=== PATIENT | female | born 1935 | race Hispanic/Latino ===

== ENCOUNTER 2023-01-27 15:18 | Inpatient (IN) | payer MEDICARE ==
[2023-01-27] MEDS ORDERED: Dextrose 5% in Water 1,000 ML IV PRN (19:45)
[2023-01-27] MEDS ORDERED: Dextrose 50% Abboject 50 ML SYRINGE IVP PRN (19:45)
[2023-01-27] MEDS: Amiodarone 200 MG TAB PO SCH ×2 (23:00→23:04)
[2023-01-27] MEDS: busPIRone HCl 5 MG TAB PO SCH ×2 (23:00→23:05)
[2023-01-27] MEDS: Acetaminophen 500 MG TAB PO SCH ×2 (23:00→23:06)
[2023-01-27] MEDS: Atorvastatin Calcium 10 MG TAB PO SCH (23:05)
[2023-01-28] MEDS: Acetaminophen 500 MG TAB PO SCH ×3 (06:06→17:09)
[2023-01-28] MEDS ORDERED: Non-Formulary Item 1 EACH (Amlodipine Besylate/Benazepril [Amlodipine Besylate/Benazepril PO SCH (09:00)
[2023-01-28] MEDS: busPIRone HCl 5 MG TAB PO SCH (09:37)
[2023-01-28] MEDS: Amiodarone 200 MG TAB PO SCH (09:37)
[2023-01-28] MEDS: Citalopram 20 MG TAB PO SCH (09:37)
[2023-01-28] MEDS: Tamsulosin HCl 0.4 MG CAP PO SCH (09:37)
[2023-01-28] MEDS: Insulin Regular 300 UNITS/3 ML VIAL SC PRN ×2 (09:44→17:16)
[2023-01-28] MEDS: ALPRAZolam 0.5 MG TAB PO PRN (18:29)
[2023-01-28] MEDS: Atorvastatin Calcium 10 MG TAB PO SCH (21:00)
[2023-01-29 05:17] LABS: Anion Gap 13 mmol/L (10-20); BUN (Urea Nitrogen) 15 mg/dL (9.8-20.1); Calc. Creatinine Clearance 28 mL/min (70-130); Calcium 8.6 mg/dL (7.8-10.44); Carbon Dioxide 23 mmol/L (23-31); Chloride 109 mmol/L (98-107); Estimated GFR 56; Glucose 209 mg/dL (83-110); Potassium 4.7 mmol/L (3.5-5.1); Sodium 140 mmol/L (136-145)
[2023-01-29 05:26] LABS: #Basophils 0.1 thou/uL (0.0-0.2); #Eosinphils 0.2 thou/uL (0.0-0.7); #Lymphocytes 0.8 thou/uL (1.20-3.40); #Monocytes 0.6 thou/uL (0.11-0.59); #Neutrophils 11.9 thou/uL (1.40-6.50); %Basophils 0.5 % (0.0-1.0); %Eosinophils 1.7 % (0.0-10.0); %Lymphocytes 5.8 % (21.0-51.0); %Monocytes 4.6 % (0.0-10.0); %Neutrophils 87.4 % (42.0-75.0); Hemoglobin 10.4 g/dL (12.0-16.0); Mean Corpuscular HGB CONC 31.5 g/dL (32.0-36.0); Mean Corpuscular Hemoglobin 29.1 pg (27.0-31.0); Mean Corpuscular Volume 92.2 fl (78.0-98.0); Mean Platelet Volume 6.8 fL (7.4-10.4); Platelet Count 279 10x3/uL (130-400); RBC Distribution Width 14.8 % (11.5-14.5); Red Blood Cell (RBC) Count 3.56 mill/uL (4.20-5.40); White Blood Cell (WBC) Count 13.7 10x3/uL (4.8-10.8)
[2023-01-29] MEDS: Acetaminophen 500 MG TAB PO SCH ×5 (06:00→19:25)
[2023-01-29] MEDS: Amiodarone 200 MG TAB PO SCH ×2 (09:50→21:29)
[2023-01-29] MEDS: Citalopram 20 MG TAB PO SCH (09:51)
[2023-01-29] MEDS: Insulin Regular 300 UNITS/3 ML VIAL SC PRN ×2 (09:52→13:45)
[2023-01-29] MEDS: Tamsulosin HCl 0.4 MG CAP PO SCH (09:52)
[2023-01-29] MEDS: Atorvastatin Calcium 10 MG TAB PO SCH (21:30)
[2023-01-30] MEDS: Acetaminophen 500 MG TAB PO SCH ×5 (00:46→23:49)
[2023-01-30] MEDS: Tamsulosin HCl 0.4 MG CAP PO SCH (10:11)
[2023-01-30] MEDS: Lisinopril 10 MG TAB PO SCH (10:11)
[2023-01-30] MEDS: Amlodipine 5 MG TAB PO SCH (10:12)
[2023-01-30] MEDS: Insulin Regular 300 UNITS/3 ML VIAL SC PRN ×2 (10:13→11:57)
[2023-01-30] MEDS: Citalopram 20 MG TAB PO SCH (10:13)
[2023-01-30] MEDS: Amiodarone 200 MG TAB PO SCH ×2 (10:13→22:00)
[2023-01-30] MEDS: ALPRAZolam 0.5 MG TAB PO PRN (11:52)
[2023-01-30] MEDS: Atorvastatin Calcium 10 MG TAB PO SCH (22:00)
[2023-01-31] MEDS: Acetaminophen 500 MG TAB PO SCH ×3 (06:01→17:55)
[2023-01-31] MEDS: Citalopram 20 MG TAB PO SCH (09:51)
[2023-01-31] MEDS: Lisinopril 10 MG TAB PO SCH (09:51)
[2023-01-31] MEDS: Amlodipine 5 MG TAB PO SCH (09:52)
[2023-01-31] MEDS: Tamsulosin HCl 0.4 MG CAP PO SCH (09:53)
[2023-01-31] MEDS: Insulin Regular 300 UNITS/3 ML VIAL SC PRN ×2 (09:54→17:51)
[2023-01-31] MEDS: Amiodarone 200 MG TAB PO SCH ×2 (09:54→21:23)
[2023-01-31] MEDS: Atorvastatin Calcium 10 MG TAB PO SCH (21:23)
[2023-01-31] MEDS: traMADol HCl 50 MG TAB PO PRN (21:23)
[2023-02-01] MEDS: Acetaminophen 500 MG TAB PO SCH ×4 (00:31→18:00)
[2023-02-01] MEDS: Tamsulosin HCl 0.4 MG CAP PO SCH (09:52)
[2023-02-01] MEDS: Amiodarone 200 MG TAB PO SCH ×2 (09:54→20:43)
[2023-02-01] MEDS: Lisinopril 10 MG TAB PO SCH (09:54)
[2023-02-01] MEDS: Amlodipine 5 MG TAB PO SCH (09:55)
[2023-02-01] MEDS: Citalopram 20 MG TAB PO SCH (09:55)
[2023-02-01] MEDS: Insulin Regular 300 UNITS/3 ML VIAL SC PRN ×3 (10:25→20:43)
[2023-02-01] MEDS: ALPRAZolam 0.5 MG TAB PO PRN (20:38)
[2023-02-01] MEDS: Atorvastatin Calcium 10 MG TAB PO SCH (20:39)
[2023-02-01] MEDS: Mirtazapine 15 MG TAB PO SCH (20:41)
[2023-02-01] MEDS: traMADol HCl 50 MG TAB PO PRN (20:42)
[2023-02-02] MEDS: Acetaminophen 500 MG TAB PO SCH ×5 (00:23→12:01)
[2023-02-02] MEDS ORDERED: Polyethylene Glycol 3350 17 GM Packet PER TUBE SCH (09:00)
[2023-02-02] MEDS: Lisinopril 10 MG TAB PO SCH (10:34)
[2023-02-02] MEDS: Citalopram 20 MG TAB PO SCH (10:35)
[2023-02-02] MEDS: Amlodipine 5 MG TAB PO SCH (10:37)
[2023-02-02] MEDS: Polyethylene Glycol 3350 17 GM Packet PO SCH (10:37)
[2023-02-02] MEDS: Tamsulosin HCl 0.4 MG CAP PO SCH (10:38)
[2023-02-02] MEDS: Amiodarone 200 MG TAB PO SCH ×2 (10:38→20:53)
[2023-02-02] MEDS: Insulin Regular 300 UNITS/3 ML VIAL SC PRN (12:12)
[2023-02-02] MEDS: Mirtazapine 15 MG TAB PO SCH (20:53)
[2023-02-02] MEDS: Atorvastatin Calcium 10 MG TAB PO SCH (20:53)
[2023-02-03] MEDS: Acetaminophen 500 MG TAB PO SCH ×4 (00:12→17:15)
[2023-02-03] MEDS: Polyethylene Glycol 3350 17 GM Packet PO SCH (09:04)
[2023-02-03] MEDS: Tamsulosin HCl 0.4 MG CAP PO SCH (09:04)
[2023-02-03] MEDS: Lisinopril 10 MG TAB PO SCH (09:05)
[2023-02-03] MEDS: Citalopram 20 MG TAB PO SCH (09:05)
[2023-02-03] MEDS: Amiodarone 200 MG TAB PO SCH ×2 (09:06→22:24)
[2023-02-03] MEDS: Amlodipine 5 MG TAB PO SCH (09:06)
[2023-02-03] MEDS: Insulin Regular 300 UNITS/3 ML VIAL SC PRN (12:14)
[2023-02-03] MEDS: Atorvastatin Calcium 10 MG TAB PO SCH (22:23)
[2023-02-03] MEDS: Mirtazapine 15 MG TAB PO SCH (22:24)
[2023-02-04] MEDS: Acetaminophen 500 MG TAB PO SCH ×5 (00:15→23:12)
[2023-02-04] MEDS: Polyethylene Glycol 3350 17 GM Packet PO SCH (09:35)
[2023-02-04] MEDS: Amlodipine 5 MG TAB PO SCH (09:37)
[2023-02-04] MEDS: Citalopram 20 MG TAB PO SCH (09:38)
[2023-02-04] MEDS: Amiodarone 200 MG TAB PO SCH ×2 (09:38→22:14)
[2023-02-04] MEDS: Tamsulosin HCl 0.4 MG CAP PO SCH (09:38)
[2023-02-04] MEDS: Lisinopril 10 MG TAB PO SCH (09:39)
[2023-02-04] MEDS: Insulin Regular 300 UNITS/3 ML VIAL SC PRN (12:53)
[2023-02-04] MEDS: Mirtazapine 15 MG TAB PO SCH (22:14)
[2023-02-04] MEDS: Atorvastatin Calcium 10 MG TAB PO SCH (22:14)
[2023-02-05] LABS: Bilirubin Negative (Negative); Blood, Urine Small (Negative); Clarity Cloudy (Clear); Glucose, Urine (Dipstick) Negative (Negative); Ketone, Urine Negative (Negative); Leukocyte Moderate (Negative); Nitrite Positive (Negative); Protein, Urine (Dipstick) Negative (Neg-Trace); Specific Gravity, Urine 1.015 (1.005-1.030); Urobilinogen 0.2 mg/dL (Less than 2)
[2023-02-05 00:02] LABS: Bacteria/HPF 3+ HPF (None Seen); CAUTI Indications for Culture Dysuria,urgency,freq
[2023-02-05 00:03] LABS: Mucous/LPF Few LPF (<2+)
[2023-02-05 00:04] LABS: Urine Culture Reflex Yes Yes
[2023-02-05] MEDS: Acetaminophen 500 MG TAB PO SCH ×4 (05:59→23:31)
[2023-02-05 06:02] LABS: #Basophils 0.1 thou/uL (0.0-0.2); #Eosinphils 0.2 thou/uL (0.0-0.7); #Lymphocytes 1.2 thou/uL (1.20-3.40); #Monocytes 0.6 thou/uL (0.11-0.59); #Neutrophils 7.1 thou/uL (1.40-6.50); %Basophils 0.6 % (0.0-1.0); %Lymphocytes 12.7 % (21.0-51.0); %Monocytes 6.4 % (0.0-10.0); %Neutrophils 78.3 % (42.0-75.0); Hemoglobin 10.2 g/dL (12.0-16.0); Mean Corpuscular HGB CONC 31.4 g/dL (32.0-36.0); Mean Corpuscular Hemoglobin 28.9 pg (27.0-31.0); Mean Corpuscular Volume 92.3 fl (78.0-98.0); Platelet Count 395 10x3/uL (130-400); RBC Distribution Width 16.1 % (11.5-14.5); Red Blood Cell (RBC) Count 3.52 mill/uL (4.20-5.40)
[2023-02-05 06:14] LABS: ALT (SGPT) 11 U/L (8-55); AST (SGOT) 12 U/L (5-34); Alkaline Phosphatase 120 U/L (40-110); Anion Gap 14 mmol/L (10-20); BUN (Urea Nitrogen) 23 mg/dL (9.8-20.1); Bilirubin, Total 0.3 mg/dL (0.2-1.2); Calc. Creatinine Clearance 23 mL/min (70-130); Calcium 8.4 mg/dL (7.8-10.44); Carbon Dioxide 22 mmol/L (23-31); Chloride 111 mmol/L (98-107); Estimated GFR 44; Globulin 2.8 g/dL (2.4-3.5); Glucose 151 mg/dL (83-110); Potassium 4.7 mmol/L (3.5-5.1); Protein, Total 5.8 g/dL (5.8-8.1); Sodium 142 mmol/L (136-145)
[2023-02-05] MEDS: Citalopram 20 MG TAB PO SCH (09:31)
[2023-02-05] MEDS: Tamsulosin HCl 0.4 MG CAP PO SCH (09:31)
[2023-02-05] MEDS: Amiodarone 200 MG TAB PO SCH (09:32)
[2023-02-05] MEDS: Polyethylene Glycol 3350 17 GM Packet PO SCH (09:33)
[2023-02-05] MEDS: traMADol HCl 50 MG TAB PO PRN (09:36)
[2023-02-05] MEDS: Lisinopril 10 MG TAB PO SCH (10:42)
[2023-02-05] MEDS: Amlodipine 5 MG TAB PO SCH (10:43)
[2023-02-05] MEDS: Insulin Regular 300 UNITS/3 ML VIAL SC PRN (12:53)
[2023-02-05] MEDS: Senokot 8.6 MG TAB PO PRN (21:38)
[2023-02-05] MEDS: Mirtazapine 15 MG TAB PO SCH (21:38)
[2023-02-05] MEDS: Atorvastatin Calcium 10 MG TAB PO SCH (21:38)
[2023-02-06] MEDS: Acetaminophen 500 MG TAB PO SCH ×4 (05:50→23:22)
[2023-02-06] MEDS: Amlodipine 5 MG TAB PO SCH (09:44)
[2023-02-06] MEDS: Amiodarone 200 MG TAB PO SCH (09:45)
[2023-02-06] MEDS: Tamsulosin HCl 0.4 MG CAP PO SCH (09:45)
[2023-02-06] MEDS: Lisinopril 10 MG TAB PO SCH (09:45)
[2023-02-06] MEDS: Senokot 8.6 MG TAB PO PRN ×2 (09:45→21:44)
[2023-02-06] MEDS: Citalopram 20 MG TAB PO SCH (09:45)
[2023-02-06] MEDS: Polyethylene Glycol 3350 17 GM Packet PO SCH (09:45)
[2023-02-06] MEDS: Insulin Regular 300 UNITS/3 ML VIAL SC PRN (12:27)
[2023-02-06] MEDS ORDERED: Ciprofloxacin 500 MG TAB PO SCH (13:30)
[2023-02-06] MEDS ORDERED: GLYCERIN ADULT PR PRN (14:42)
[2023-02-06] MEDS: Atorvastatin Calcium 10 MG TAB PO SCH (21:44)
[2023-02-06] MEDS: Mirtazapine 15 MG TAB PO SCH (21:45)
[2023-02-06] MEDS: Ciprofloxacin 500 MG TAB PO SCH (21:45)
[2023-02-07] MEDS: Ciprofloxacin 500 MG TAB PO SCH (05:23)
[2023-02-07] MEDS: Acetaminophen 500 MG TAB PO SCH ×3 (05:23→18:42)
[2023-02-07] MEDS: Polyethylene Glycol 3350 17 GM Packet PO SCH (10:40)
[2023-02-07] MEDS: metFORMIN XR 500 MG TAB PO SCH (10:41)
[2023-02-07] MEDS: Amlodipine 5 MG TAB PO SCH (10:41)
[2023-02-07] MEDS: Tamsulosin HCl 0.4 MG CAP PO SCH (10:41)
[2023-02-07] MEDS: Amiodarone 200 MG TAB PO SCH (10:42)
[2023-02-07] MEDS: Lisinopril 10 MG TAB PO SCH (10:42)
[2023-02-07] MEDS: Citalopram 20 MG TAB PO SCH (10:44)
[2023-02-07] MEDS: Insulin Regular 300 UNITS/3 ML VIAL SC PRN (13:01)
[2023-02-07] MEDS: Atorvastatin Calcium 10 MG TAB PO SCH (21:47)
[2023-02-07] MEDS: Mirtazapine 15 MG TAB PO SCH (21:48)
[2023-02-08] MEDS: Acetaminophen 500 MG TAB PO SCH ×4 (05:29→18:16)
[2023-02-08] MEDS: Ciprofloxacin 500 MG TAB PO SCH (05:29)
[2023-02-08] MEDS: Citalopram 20 MG TAB PO SCH (08:47)
[2023-02-08] MEDS: Amlodipine 5 MG TAB PO SCH (08:47)
[2023-02-08] MEDS: Amiodarone 200 MG TAB PO SCH (08:48)
[2023-02-08] MEDS: Lisinopril 10 MG TAB PO SCH (08:48)
[2023-02-08] MEDS: metFORMIN XR 500 MG TAB PO SCH (08:48)
[2023-02-08] MEDS: Tamsulosin HCl 0.4 MG CAP PO SCH (08:48)
[2023-02-08] MEDS: Polyethylene Glycol 3350 17 GM Packet PO SCH (08:49)
[2023-02-08] MEDS ORDERED: ALPRAZolam 0.5 MG TAB PO PRN (12:05)
[2023-02-08] MEDS: Insulin Regular 300 UNITS/3 ML VIAL SC PRN (12:18)
[2023-02-08] MEDS: Mirtazapine 15 MG TAB PO SCH (22:15)
[2023-02-08] MEDS: Atorvastatin Calcium 10 MG TAB PO SCH (22:18)
[2023-02-09] MEDS: Acetaminophen 500 MG TAB PO SCH ×4 (00:36→17:00)
[2023-02-09] MEDS: Ciprofloxacin 500 MG TAB PO SCH (06:00)
[2023-02-09] MEDS: Polyethylene Glycol 3350 17 GM Packet PO SCH (10:52)
[2023-02-09] MEDS: Amlodipine 5 MG TAB PO SCH (10:53)
[2023-02-09] MEDS: Tamsulosin HCl 0.4 MG CAP PO SCH (10:53)
[2023-02-09] MEDS: Lisinopril 10 MG TAB PO SCH (10:54)
[2023-02-09] MEDS: Amiodarone 200 MG TAB PO SCH (10:54)
[2023-02-09] MEDS: metFORMIN XR 500 MG TAB PO SCH (10:54)
[2023-02-09] MEDS: Citalopram 20 MG TAB PO SCH (10:54)
[2023-02-09] MEDS: Atorvastatin Calcium 10 MG TAB PO SCH (21:04)
[2023-02-09] MEDS: Mirtazapine 15 MG TAB PO SCH (21:04)
[2023-02-10] MEDS: Acetaminophen 500 MG TAB PO SCH ×4 (00:09→18:49)
[2023-02-10] MEDS: Ciprofloxacin 500 MG TAB PO SCH (05:40)
[2023-02-10] MEDS: metFORMIN XR 500 MG TAB PO SCH (10:02)
[2023-02-10] MEDS: Amlodipine 5 MG TAB PO SCH (10:02)
[2023-02-10] MEDS: Amiodarone 200 MG TAB PO SCH (10:03)
[2023-02-10] MEDS: Tamsulosin HCl 0.4 MG CAP PO SCH (10:03)
[2023-02-10] MEDS: Senokot 8.6 MG TAB PO PRN (10:03)
[2023-02-10] MEDS: Lisinopril 10 MG TAB PO SCH (10:03)
[2023-02-10] MEDS: Polyethylene Glycol 3350 17 GM Packet PO SCH (10:04)
[2023-02-10] MEDS: Citalopram 20 MG TAB PO SCH (10:04)
[2023-02-10] MEDS: Atorvastatin Calcium 10 MG TAB PO SCH (20:30)
[2023-02-10] MEDS: Mirtazapine 15 MG TAB PO SCH (20:30)
[2023-02-11] MEDS: Acetaminophen 500 MG TAB PO SCH ×4 (00:45→18:07)
[2023-02-11] MEDS: Ciprofloxacin 500 MG TAB PO SCH (05:36)
[2023-02-11] MEDS: metFORMIN XR 500 MG TAB PO SCH (09:11)
[2023-02-11] MEDS: Amiodarone 200 MG TAB PO SCH (09:11)
[2023-02-11] MEDS: Amlodipine 5 MG TAB PO SCH (09:12)
[2023-02-11] MEDS: Polyethylene Glycol 3350 17 GM Packet PO SCH (09:12)
[2023-02-11] MEDS: Tamsulosin HCl 0.4 MG CAP PO SCH (09:12)
[2023-02-11] MEDS: Citalopram 20 MG TAB PO SCH (09:12)
[2023-02-11] MEDS: Lisinopril 10 MG TAB PO SCH (09:12)
[2023-02-11] MEDS: Mirtazapine 15 MG TAB PO SCH (20:26)
[2023-02-11] MEDS: Atorvastatin Calcium 10 MG TAB PO SCH (20:26)
[2023-02-12] MEDS: Acetaminophen 500 MG TAB PO SCH ×4 (00:36→18:00)
[2023-02-12] MEDS: Ciprofloxacin 500 MG TAB PO SCH (05:48)
[2023-02-12] MEDS ORDERED: traMADol HCl 50 MG TAB PO PRN (06:22)
[2023-02-12] MEDS: Citalopram 20 MG TAB PO SCH (09:19)
[2023-02-12] MEDS: Amiodarone 200 MG TAB PO SCH (09:19)
[2023-02-12] MEDS: metFORMIN XR 500 MG TAB PO SCH (09:19)
[2023-02-12] MEDS: Tamsulosin HCl 0.4 MG CAP PO SCH (09:19)
[2023-02-12] MEDS: Lisinopril 10 MG TAB PO SCH (09:19)
[2023-02-12] MEDS: Amlodipine 5 MG TAB PO SCH (09:20)
[2023-02-12] MEDS: Polyethylene Glycol 3350 17 GM Packet PO SCH (09:20)
[2023-02-12] MEDS: Atorvastatin Calcium 10 MG TAB PO SCH (21:32)
[2023-02-12] MEDS: Mirtazapine 15 MG TAB PO SCH (21:32)
[2023-02-13] MEDS: Acetaminophen 500 MG TAB PO SCH ×4 (01:00→17:32)
[2023-02-13] MEDS: Ciprofloxacin 500 MG TAB PO SCH (05:56)
[2023-02-13] MEDS: Amlodipine 5 MG TAB PO SCH (08:33)
[2023-02-13] MEDS: Amiodarone 200 MG TAB PO SCH (08:34)
[2023-02-13] MEDS: Citalopram 20 MG TAB PO SCH (08:34)
[2023-02-13] MEDS: metFORMIN XR 500 MG TAB PO SCH (08:34)
[2023-02-13] MEDS: Tamsulosin HCl 0.4 MG CAP PO SCH (08:34)
[2023-02-13] MEDS: Polyethylene Glycol 3350 17 GM Packet PO SCH (08:35)
[2023-02-13] MEDS: Lisinopril 10 MG TAB PO SCH (08:35)
[2023-02-13] MEDS: Mirtazapine 15 MG TAB PO SCH (20:07)
[2023-02-13] MEDS: Atorvastatin Calcium 10 MG TAB PO SCH (20:07)
[2023-02-14] MEDS: Acetaminophen 500 MG TAB PO SCH ×4 (00:04→16:44)
[2023-02-14] MEDS: Ciprofloxacin 500 MG TAB PO SCH (05:36)
[2023-02-14 05:52] VITALS: TEMP 98.2
[2023-02-14] MEDS: Lisinopril 10 MG TAB PO SCH (07:49)
[2023-02-14] MEDS: Amlodipine 5 MG TAB PO SCH (07:50)
[2023-02-14] MEDS: Tamsulosin HCl 0.4 MG CAP PO SCH (07:50)
[2023-02-14] MEDS: metFORMIN XR 500 MG TAB PO SCH (07:51)
[2023-02-14] MEDS: Amiodarone 200 MG TAB PO SCH (07:51)
[2023-02-14] MEDS: Citalopram 20 MG TAB PO SCH (07:52)
[2023-02-14 08:01] VITALS: BP 121/64
[2023-02-14] MEDS: Polyethylene Glycol 3350 17 GM Packet PO SCH (08:05)
[2023-02-14 10:08] VITALS: BMI 16.7
== END 2023-02-14 17:30 | DRG 560 ==
LOC: BURMED 18:41
PROVIDERS: ADMIT Family Medicine; ATTEND Nurse Practitioner
DX: S32.519D Fracture of superior rim of unspecified pubis, subsequent encounter for fracture with routine healing (principal); I48.20 Chronic atrial fibrillation, unspecified; N39.0 Urinary tract infection, site not specified; S32.10XD Unspecified fracture of sacrum, subsequent encounter for fracture with routine healing; R53.1 Weakness; R33.9 Retention of urine, unspecified; B96.5 Pseudomonas (aeruginosa) (mallei) (pseudomallei) as the cause of diseases classified elsewhere; I50.9 Heart failure, unspecified; I11.0 Hypertensive heart disease with heart failure; E78.5 Hyperlipidemia, unspecified; E11.9 Type 2 diabetes mellitus without complications
CPT/HCPCS: 36415; 36416; 80048; 80053; 81001; 85025; 87077; 87086; 87186; J1815